=== PATIENT | female | born 1970 | race Asian ===

== ENCOUNTER 2020-11-16 11:42 | Day surgery (SDC) | payer OTHER ==
[2020-11-16] MEDS ORDERED: LACTATED RINGERS 1,000 ML IV ONE ×2 (11:58→13:23)
[2020-11-16] MEDS ORDERED: fentaNYL 250 MCG/5 ML VIAL ONE (13:00)
[2020-11-16] MEDS ORDERED: MIDAZOLAM 2 MG/2 ML VIAL ONE ×2 (13:00→13:11)
[2020-11-16 13:53] VITALS: BP 119/70
== END 2020-11-16 11:43 | disposition home or self-care (01) ==
LOC: SDS 11:42
PROVIDERS: ATTEND Surgery
PROC: 0DBP8ZX Excision of Rectum, Via Natural or Artificial Opening Endoscopic, Diagnostic (ICD-10-PCS; principal; 2020-11-16 12:45)
DX: Z12.11 Encounter for screening for malignant neoplasm of colon (principal); K64.8 Other hemorrhoids; K62.9 Disease of anus and rectum, unspecified
CPT/HCPCS: 45380; J3010; J7120

== ENCOUNTER 2020-12-07 13:41 | Outpatient (CLI) | payer OTHER ==
--- NOTE | 2020-12-08 08:54 | Mammography Report ---
BILATERAL DIGITAL SCREENING MAMMOGRAM 3D/2D: 12/07/2020 CLINICAL: Baseline exam. Routine screening. No prior exams were available for comparison. The tissue of both breasts is heterogeneously dense. T his may lower the sensitivity of mammography. No significant masses, calcifications, or other findings are seen in either breast. IMPRESSION: NEGATIVE There is no mammographic evidence of malignancy. A 1 year screening mammogram is recommended. This exam was interpreted at Station ID: [id number]. NOTE: For mammograms, a report in lay terms will be sent to the patient. Approximately 15% of breast malignancies will not be visualized mammographically. In the management of a palpable breast mass, a negative mammogram must not discourage biopsy of a clinically suspicious lesion. Electronically Signed By: Jordin Grullon M.D. ddp/penrad:12/07/2020 14:39:45 ACR BI-RADS Category 1: Negative 3341F PARENCHYMAL PATTERN: (D) - The breast(s) demonstrate(s) heterogeneously dense fibroglandular nuvia hernandez. BI-RADS CATEGORY: (1) - 1 RECOMMENDATION: (ANNUAL) - Recommend routine annual screening mammography. [id number] 1 year screening LATERALITY: (B)
== END 2020-12-07 13:42 | disposition home or self-care (01) ==
LOC: DI.N 13:41
DX: Z12.31 Encounter for screening mammogram for malignant neoplasm of breast (principal)

== ENCOUNTER 2020-12-29 14:06 | Outpatient (CLI) | payer OTHER | END 2020-12-29 14:07 | disposition home or self-care (01) | LOC: COV 14:06 | PROVIDERS: ATTEND Surgery | DX: Z01.812 Encounter for preprocedural laboratory examination (principal); K62.89 Other specified diseases of anus and rectum; Z20.822 Contact with and (suspected) exposure to COVID-19 ==

== ENCOUNTER 2021-01-01 10:32 | Day surgery (SDC) | payer OTHER ==
[~2021-01-01 10:32] MED LIST: LACTATED RINGERS 1,000 ML IV ONE; ceFAZolin 2 GM/50 ML 2 GM/50 ML BAG IV ONE
--- OUTSIDE RECORDS SUMMARY | 2021-01-01 10:35 | EXTERNAL MEDICAL SUMMARY RPT | Continuity of Care Document ---
:1970 Demographics Phone Unavailable Preferred Language Hungarian Marital Status Unknown Nondenominational Affiliation Unknown Race Unknown Ethnic Group Unknown Author Organization [facility] Address [address] [place] [address] Phone Problems date description facility [id number] [facility] Social History date description facility [id number]
[2021-01-01] MEDS ORDERED: LACTATED RINGERS 1,000 ML IV ONE ×2 (11:10→13:13)
[2021-01-01] MEDS ORDERED: HYDROmorphone 0.5 MG/0.5 ML SYRINGE IVP PRN (11:35)
[2021-01-01] MEDS ORDERED: fentaNYL 100 MCG/2 ML VIAL IVP PRN (11:35)
[2021-01-01] MEDS ORDERED: NALOXONE 0.4 MG/ML VIAL IVP PRN (11:35)
[2021-01-01] MEDS ORDERED: ATROPINE ABBOJECT 1 MG/10 ML SYRINGE IVP PRN (11:35)
[2021-01-01] MEDS ORDERED: ONDANSETRON 4 MG/2 ML VIAL IVP PRN ×2 (11:35→12:41)
[2021-01-01] MEDS ORDERED: METOCLOPRAMIDE 10 MG/2 ML VIAL IVP PRN (11:35)
[2021-01-01] MEDS ORDERED: ePHEDrine 50 MG/ML VIAL IVP PRN (11:35)
[2021-01-01] MEDS ORDERED: MORPHINE 2 MG/ML CARPUJECT IVP PRN (11:35)
--- NOTE | 2021-01-01 11:35 | ANESTHESIA ---
Pre-Anesthesia VS, & Labs - Diagnosis anal mass - Procedure EUA with excision anal mass Vital Signs: Temp Pulse Resp BP Pulse Ox 36.3 C L 65 16 133/58 H 99 01/01/21 11:01 01/01/21 11:01 01/01/21 11:01 01/01/21 11:01 01/01/21 11:01 Height: 5 ft 3 in Weight (kg): 53.3 kg Body Mass Index: 20.8 BMI Classification: Healthy weight - NPO >8 hours - Is Patient ?: No Home Medications and Allergies Ascorbic Acid [Vitamin C] 500 mg PO DAILY 11/16/20 Allergies/Adverse Reactions: Allergies Allergy/AdvReac Type Severity Reaction Status Date / Time No Known Drug Allergies Allergy Verified 11/15/20 14:30 Anes History & Medical History - Anesthetic History Anesthesia Complications: reports: No previous complications Family history of Anesthesia Complications: Denies Family history of Malignant Hyperthermia: Denies - Medical History Cardiovascular: reports: None Pulmonary: reports: None Gastrointestinal: reports: None Urinary: reports: None Musculoskeletal: reports: None Endocrine/Autoimmune: reports: None Skin: reports: None - Surgical History General: reports: Colonoscopy Orthopedic: reports: Other Exam General: Alert, Oriented x3, Cooperative Dental: WNL Mouth Openin Fingerbreadth Neck Mobility: Normal Mallampati classification: I Thyromental Distance: 4-6 cm Respiratory: Lungs clear Cardiovascular: Regular rate Abdomen: Normal bowel sounds Extremities: No clubbing Neurological: Normal gait Mental/Cognitive Status: Alert/Oriented X3 Cognitive Status: Within normal limits Plan Anesthesia Type: General Consent for Procedure(s) Verified and Reviewed: Yes Code Status: Attempt Resuscitation ASA classification: 1-Healthy patient Is this case an emergency?: No
[2021-01-01] MEDS ORDERED: BUPIVACAINE 0.5% PF 30 ML VIAL ONE (11:36)
[2021-01-01] MEDS ORDERED: LIDOCAINE 2%-EPI 1:100000 20 ML MDV ONE (11:36)
[2021-01-01] MEDS ORDERED: PROPOFOL 200 MG/20 ML VIAL IVP ONE (11:39)
[2021-01-01] MEDS ORDERED: LIDOCAINE-MPF 2% 5 ML VIAL ONE (11:40)
[2021-01-01] MEDS ORDERED: MIDAZOLAM 2 MG/2 ML VIAL ONE (11:40)
[2021-01-01] MEDS ORDERED: BUPIVACAINE 0.5% PF 30 ML VIAL INFIL ONE ×2 (11:45)
[2021-01-01] MEDS ORDERED: LIDOCAINE 2%-EPI 1:100000 20 ML MDV SUBQ ONE ×2 (11:46)
[2021-01-01] MEDS ORDERED: LACTATED RINGERS 1,000 ML IV SCH (12:00)
[2021-01-01] MEDS ORDERED: ONDANSETRON 4 MG/2 ML VIAL ONE (12:05)
[2021-01-01] MEDS ORDERED: DEXAMETHASONE 4 MG/ML VIAL ONE (12:05)
[2021-01-01] MEDS ORDERED: LIDOCAINE OINTMENT 5% 35.44 GM TUBE TOP ONE (12:23)
[2021-01-01] MEDS ORDERED: LIDOCAINE OINTMENT 5% 35.44 GM TUBE ONE (12:23)
--- NOTE | 2021-01-01 12:55 | OPERATIVE REPORT ---
Operative Report - General Procedure Date: 01/01/21 Planned Procedure: Examination under anesthesia with excision of anal mass Pre-Op Diagnosis: Anal mass Procedure Performed: Examination under anesthesia with excision of anal mass Post Op Diagnosis: Anal mass - Procedure Note Primary Surgeon: Letty Anesthesia Provider: ALINE Louie Anesthesia Technique: General LMA Pathology: Anal lesion to pathology in formalin Estimated Blood Loss (mL): 10 Indications: Anal mass seen on Colonoscopy Findings: 5mm fleshy mass at the 9 o'clock radian with patient in lithotomy position Complications: None apparent - Other Other Information/Narrative: After obtaining informed consent, the patient is brought to the operating room and placed in the supine position on the operating table. Following successful induction of general anesthesia, appropriate padding of all bony prominences, and placement appropriate monitors, the patient's legs were placed in Robin stir rups in the perianal region prepped and draped in the standard surgical fashion. A timeout was held per scope protocol. All elements of the surgical safety checklist were followed before, during, and after the procedure. We began the procedure by placing a bivalve anal retractor into the anal canal we identified the lesion at the 9:00 radian with the patient in this lithotomy position. There were no other mass lesions identified. With the retractor in place, a stitch was placed superior to the lesion to control the hemorrhoidal blood flow in that position the lesion was then removed with an elliptical incision and the existing defect closed with running locking chromic suture. Anal tone was normal. No other prominent mass lesions were identified. There are minor external anal skin tags. All sponge, needle, and instrument counts were correct at the conclusion of the case. The patient was dressed with a Gelfoam pack and dry gauze. She was taken to the postanesthesia care unit in good condition.
[2021-01-01 13:53] VITALS: BP 134/75
--- NOTE | 2021-01-01 14:05 | ANESTHESIA POST OP EVALUATION ---
Anesthesia Post Eval - Post Anesthesia Eval Vitals: Last Vital Signs Temp 36.9 C 01/01/21 13:51 Pulse 65 01/01/21 13:51 Resp 14 01/01/21 13:51 BP 134/75 H 01/01/21 13:51 Pulse Ox 100 01/01/21 13:51 CV Function Including HR & BP: Stable Pain Control: Satisfactory Nausea & Vomiting: Negative Mental Status: Baseline Respiratory Status: Airway Patent Hydration Status: Satisfactory Anesthesia Complications: None
== END 2021-01-01 10:33 | disposition home or self-care (01) ==
LOC: SDS 10:32
PROVIDERS: ATTEND Surgery
PROC: 0DBQ0ZX Excision of Anus, Open Approach, Diagnostic (ICD-10-PCS; principal; 2021-01-01 11:45)
DX: K62.89 Other specified diseases of anus and rectum (principal); K64.4 Residual hemorrhoidal skin tags
CPT/HCPCS: 46922; A9270; J0690; J7120

== ENCOUNTER 2021-11-27 10:08 | Outpatient (CLI) | payer OTHER ==
[2021-11-27 12:40] LABS: BASOPHILS % (AUTO) 0.8 %; EOSINOPHILS % (AUTO) 0.4 %; HCT - HEMATOCRIT 35.4 % (37.0-47.0); HGB - HEMOGLOBIN 11.9 g/dL (12.0-16.0); LYMPHOCYTES # (AUTO) 1.5 10^3/uL (1.5-3.5); LYMPHOCYTES % (AUTO) 30.3 %; MEAN CORPUSCULAR HEMOGLOBIN 32.7 pg (27.0-31.0); MEAN CORPUSCULAR HGB CONC 33.6 g/dL (32.0-36.0); MEAN CORPUSCULAR VOLUME 97.3 fL (81.0-99.0); MEAN PLATELET VOLUME 10.3 fL (7.9-10.8); MONOCYTES # (AUTO) 0.2 10^3/uL (0.0-1.0); MONOCYTES % (AUTO) 4.8 %; NEUTROPHILS # (AUTO) 3.2 10^3/uL (1.5-6.6); NEUTROPHILS % (AUTO) 63.5 %; PLT - PLATELET COUNT 172 10^3/uL (130-450); RED BLOOD COUNT 3.64 10^6/uL (4.20-5.40); RED CELL DISTRIBUTION WIDTH 12.2 % (12.0-15.0)
[2021-11-27 12:47] LABS: THYROID STIMULATING HORMONE 2.12 uIU/mL (0.34-5.60)
[2021-11-27 13:05] LABS: ALBUMIN 4.5 g/dL (3.2-5.5); ALBUMIN/GLOBULIN RATIO 2.3 (1.0-2.2); ALKALINE PHOSPHATASE 37 IU/L (42-121); ALT ALANINE AMINOTRANSFERASE 16 IU/L (10-60); AST ASPARTATE AMINOTRANSFERASE 16 IU/L (10-42); BILIRUBIN,TOTAL 0.7 mg/dL (0.2-1.0); BUN - BLOOD UREA NITROGEN 13 mg/dL (6-20); CALCIUM 8.8 mg/dL (8.5-10.3); CARBON DIOXIDE - CO2 25 mmol/L (21-32); CHLORIDE 105 mmol/L (101-111); CHOL/HDL RATIO 2.8 (<4.4); CHOLESTEROL 216 mg/dL; CREATININE 0.7 mg/dL (0.4-1.0); GFR - MDRD 88 (>89); GLUCOSE 97 mg/dL (70-100); HDL CHOLESTEROL 77 mg/dL; LDL CHOLESTEROL,CALCULATED 128 mg/dL; LDL/HDL RATIO 1.7 (<4.4); POTASSIUM 4.2 mmol/L (3.5-5.0); SODIUM 138 mmol/L (135-145); TOTAL PROTEIN 6.5 g/dL (6.7-8.2); TRIGLYCERIDES 53 mg/dL; VLDL CHOLESTEROL 11 mg/dL
== END 2021-11-27 10:09 | disposition home or self-care (01) ==
LOC: LAB.N 10:08
PROVIDERS: ATTEND Nurse Practitioner Family
DX: Z00.00 Encounter for general adult medical examination without abnormal findings (principal); Z13.220 Encounter for screening for lipoid disorders; E55.9 Vitamin D deficiency, unspecified; Z13.21 Encounter for screening for nutritional disorder; Z90.89 Acquired absence of other organs; Z13.29 Encounter for screening for other suspected endocrine disorder
CPT/HCPCS: 36415; 80053; 80061; 82306; 83721; 84443; 85025

== ENCOUNTER 2022-06-26 12:35 | Outpatient (CLI) | payer OTHER ==
[2022-06-26 17:43] LABS: BASOPHILS % (AUTO) 0.7 %; EOSINOPHILS % (AUTO) 0.5 %; HCT - HEMATOCRIT 38.7 % (37.0-47.0); HGB - HEMOGLOBIN 13.1 g/dL (12.0-16.0); LYMPHOCYTES # (AUTO) 1.4 10^3/uL (1.5-3.5); LYMPHOCYTES % (AUTO) 33.9 %; MEAN CORPUSCULAR HEMOGLOBIN 32.9 pg (27.0-31.0); MEAN CORPUSCULAR HGB CONC 33.9 g/dL (32.0-36.0); MEAN CORPUSCULAR VOLUME 97.2 fL (81.0-99.0); MEAN PLATELET VOLUME 10.7 fL (7.9-10.8); MONOCYTES # (AUTO) 0.2 10^3/uL (0.0-1.0); NEUTROPHILS # (AUTO) 2.4 10^3/uL (1.5-6.6); NEUTROPHILS % (AUTO) 60.4 %; PLT - PLATELET COUNT 205 10^3/uL (130-450); RED BLOOD COUNT 3.98 10^6/uL (4.20-5.40)
[2022-06-26 17:57] LABS: ALBUMIN 4.8 g/dL (3.2-5.5); ALBUMIN/GLOBULIN RATIO 1.8 (1.0-2.2); ALKALINE PHOSPHATASE 34 IU/L (42-121); ALT ALANINE AMINOTRANSFERASE 14 IU/L (10-60); AST ASPARTATE AMINOTRANSFERASE 17 IU/L (10-42); BILIRUBIN,TOTAL 1.4 mg/dL (0.2-1.0); BUN - BLOOD UREA NITROGEN 16 mg/dL (6-20); CALCIUM 9.8 mg/dL (8.5-10.3); CARBON DIOXIDE - CO2 28 mmol/L (21-32); CHLORIDE 103 mmol/L (101-111); CREATININE 0.7 mg/dL (0.4-1.0); GFR - MDRD 88 (>89); GLUCOSE 93 mg/dL (70-100); POTASSIUM 4.1 mmol/L (3.5-5.0); SODIUM 137 mmol/L (135-145); TOTAL PROTEIN 7.4 g/dL (6.7-8.2)
[2022-06-26 18:01] LABS: CRP - C-REACTIVE PROTEIN < 1.0 mg/dL (0-1.0)
[2022-06-27 18:07] LABS: ANTI-DNA (DS) AB QN 1 IU/mL (0-9); CENTROMERE B ANTIBODIES <0.2 AI (0.0-0.9); CHROMATIN ANTIBODIES <0.2 AI (0.0-0.9); JO-1 AB <0.2 AI (0.0-0.9); RIBOSOMAL P ANTIBODIES <0.2 AI (0.0-0.9); RNP ANTIBODIES <0.2 AI (0.0-0.9); SCLERODERMA-70 ANTIBODIES <0.2 AI (0.0-0.9); SJOGREN'S ANTI-SS-A <0.2 AI (0.0-0.9); SJOGREN'S ANTI-SS-B 0.2 AI (0.0-0.9); SMITH ANTIBODIES <0.2 AI (0.0-0.9); SMITH/RNP ANTIBODIES <0.2 AI (0.0-0.9)
== END 2022-06-26 12:36 | disposition home or self-care (01) ==
LOC: LAB.N 12:35
PROVIDERS: ATTEND Registered Nurse
DX: L23.9 Allergic contact dermatitis, unspecified cause (principal)
CPT/HCPCS: 36415; 80053; 83516; 85025; 86140; 86225; 86235

== ENCOUNTER 2022-11-07 09:58 | Outpatient (CLI) | payer OTHER ==
[2022-11-07 12:31] LABS: BASOPHILS % (AUTO) 0.6 %; EOSINOPHILS % (AUTO) 0.3 %; HCT - HEMATOCRIT 32.6 % (37.0-47.0); HGB - HEMOGLOBIN 11.2 g/dL (12.0-16.0); LYMPHOCYTES # (AUTO) 1.2 10^3/uL (1.5-3.5); LYMPHOCYTES % (AUTO) 35.2 %; MEAN CORPUSCULAR HEMOGLOBIN 34.6 pg (27.0-31.0); MEAN CORPUSCULAR HGB CONC 34.4 g/dL (32.0-36.0); MEAN CORPUSCULAR VOLUME 100.6 fL (81.0-99.0); MEAN PLATELET VOLUME 11.3 fL (7.9-10.8); MONOCYTES # (AUTO) 0.2 10^3/uL (0.0-1.0); MONOCYTES % (AUTO) 6.6 %; NEUTROPHILS # (AUTO) 1.9 10^3/uL (1.5-6.6); PLT - PLATELET COUNT 166 10^3/uL (130-450); RED BLOOD COUNT 3.24 10^6/uL (4.20-5.40); RED CELL DISTRIBUTION WIDTH 12.5 % (12.0-15.0); WHITE BLOOD COUNT 3.3 x10^3/uL (4.8-10.8)
[2022-11-07 12:41] LABS: ESTIMATED AVERAGE GLUCOSE 103 mg/dL (70-100); HEMOGLOBIN A1c% 5.2 % (4.27-6.07)
[2022-11-07 12:54] LABS: ALBUMIN 4.3 g/dL (3.2-5.5); ALBUMIN/GLOBULIN RATIO 1.7 (1.0-2.2); ALKALINE PHOSPHATASE 44 IU/L (42-121); ALT ALANINE AMINOTRANSFERASE 89 IU/L (10-60); AST ASPARTATE AMINOTRANSFERASE 44 IU/L (10-42); BILIRUBIN,TOTAL 1.4 mg/dL (0.2-1.0); BUN - BLOOD UREA NITROGEN 13 mg/dL (6-20); CALCIUM 9.6 mg/dL (8.5-10.3); CARBON DIOXIDE - CO2 25 mmol/L (21-32); CHLORIDE 107 mmol/L (101-111); CHOL/HDL RATIO 2.4 (<4.4); CHOLESTEROL 144 mg/dL; CREATININE 0.6 mg/dL (0.4-1.0); GFR - MDRD 105 (>89); GLUCOSE 103 mg/dL (70-100); HDL CHOLESTEROL 61 mg/dL; LDL CHOLESTEROL,CALCULATED 70 mg/dL; LDL/HDL RATIO 1.1 (<4.4); POTASSIUM 4.4 mmol/L (3.5-5.0); SODIUM 139 mmol/L (135-145); TOTAL PROTEIN 6.8 g/dL (6.7-8.2); TRIGLYCERIDES 65 mg/dL; VLDL CHOLESTEROL 13 mg/dL
[2022-11-07 13:06] LABS: THYROID STIMULATING HORMONE < 0.08 uIU/mL (0.34-5.60)
[2022-11-07 13:41] LABS: FREE T4 (FREE THYROXINE) 2.83 ng/dL (0.58-1.64)
== END 2022-11-07 09:59 | disposition home or self-care (01) ==
LOC: LAB.N 09:58
PROVIDERS: ATTEND Nurse Practitioner Family
DX: Z00.00 Encounter for general adult medical examination without abnormal findings (principal); Z13.220 Encounter for screening for lipoid disorders; Z13.1 Encounter for screening for diabetes mellitus; Z13.29 Encounter for screening for other suspected endocrine disorder
CPT/HCPCS: 36415; 80053; 80061; 83036; 83721; 84439; 84443; 85025

== ENCOUNTER 2022-11-19 10:12 | Outpatient (CLI) | payer OTHER ==
[2022-11-19 12:42] LABS: BASOPHILS % (AUTO) 0.5 %; EOSINOPHILS % (AUTO) 0.3 %; HCT - HEMATOCRIT 36.9 % (37.0-47.0); HGB - HEMOGLOBIN 12.4 g/dL (12.0-16.0); LYMPHOCYTES # (AUTO) 1.5 10^3/uL (1.5-3.5); LYMPHOCYTES % (AUTO) 39.4 %; MEAN CORPUSCULAR HEMOGLOBIN 32.4 pg (27.0-31.0); MEAN CORPUSCULAR HGB CONC 33.6 g/dL (32.0-36.0); MEAN CORPUSCULAR VOLUME 96.3 fL (81.0-99.0); MONOCYTES # (AUTO) 0.2 10^3/uL (0.0-1.0); MONOCYTES % (AUTO) 6.5 %; PLT - PLATELET COUNT 167 10^3/uL (130-450); RED BLOOD COUNT 3.83 10^6/uL (4.20-5.40); RED CELL DISTRIBUTION WIDTH 11.9 % (12.0-15.0); WHITE BLOOD COUNT 3.7 x10^3/uL (4.8-10.8)
[2022-11-19 13:15] LABS: FOLATE 16.88 ng/mL (5.90 - >24.8)
[2022-11-21 14:08] LABS: THYROGLOBULIN ANTIBODY 26.8 IU/mL (0.0-0.9); THYROID PEROXIDASE (TPO) AB <9 IU/mL (0-34)
== END 2022-11-19 10:13 | disposition home or self-care (01) ==
LOC: LAB.N 10:12
PROVIDERS: ATTEND Nurse Practitioner Family
DX: D53.9 Nutritional anemia, unspecified (principal); R00.2 Palpitations; E05.90 Thyrotoxicosis, unspecified without thyrotoxic crisis or storm
CPT/HCPCS: 36415; 82607; 82746; 85025; 86376; 86800

== ENCOUNTER 2022-12-04 16:04 | Outpatient (CLI) | payer OTHER ==
[2022-12-04 21:25] LABS: BASOPHILS % (AUTO) 0.2 %; EOSINOPHILS # (AUTO) 0.1 10^3/uL (0.0-0.7); HCT - HEMATOCRIT 33.6 % (37.0-47.0); HGB - HEMOGLOBIN 11.2 g/dL (12.0-16.0); LYMPHOCYTES # (AUTO) 2.1 10^3/uL (1.5-3.5); LYMPHOCYTES % (AUTO) 42.8 %; MEAN CORPUSCULAR HEMOGLOBIN 31.8 pg (27.0-31.0); MEAN CORPUSCULAR HGB CONC 33.3 g/dL (32.0-36.0); MEAN CORPUSCULAR VOLUME 95.5 fL (81.0-99.0); MEAN PLATELET VOLUME 11.5 fL (7.9-10.8); MONOCYTES # (AUTO) 0.4 10^3/uL (0.0-1.0); MONOCYTES % (AUTO) 7.1 %; NEUTROPHILS # (AUTO) 2.4 10^3/uL (1.5-6.6); NEUTROPHILS % (AUTO) 48.7 %; PLT - PLATELET COUNT 147 10^3/uL (130-450); RED BLOOD COUNT 3.52 10^6/uL (4.20-5.40); RED CELL DISTRIBUTION WIDTH 12.1 % (12.0-15.0); WHITE BLOOD COUNT 4.9 x10^3/uL (4.8-10.8)
[2022-12-04 21:42] LABS: ALBUMIN 4.2 g/dL (3.2-5.5); ALBUMIN/GLOBULIN RATIO 1.6 (1.0-2.2); BILIRUBIN,TOTAL 0.8 mg/dL (0.2-1.0); CALCIUM 9.4 mg/dL (8.5-10.3); CREATININE 0.5 mg/dL (0.4-1.0); POTASSIUM 3.8 mmol/L (3.5-5.0); TOTAL PROTEIN 6.8 g/dL (6.7-8.2)
[2022-12-04 21:44] LABS: THYROID STIMULATING HORMONE < 0.08 uIU/mL (0.34-5.60)
[2022-12-04 21:46] LABS: FREE T3 9.07 pg/mL (2.5-3.9)
[2022-12-04 21:47] LABS: FREE T4 (FREE THYROXINE) 2.68 ng/dL (0.58-1.64)
[2022-12-05 15:42] LABS: T4 (THYROXINE) 14.34 ug/dL (6.09-12.23)
== END 2022-12-04 16:05 | disposition home or self-care (01) ==
LOC: LAB.N 16:04
PROVIDERS: ATTEND Nurse Practitioner Family
DX: D53.9 Nutritional anemia, unspecified (principal); R74.8 Abnormal levels of other serum enzymes; R00.2 Palpitations; E05.90 Thyrotoxicosis, unspecified without thyrotoxic crisis or storm; R79.89 Other specified abnormal findings of blood chemistry; D72.819 Decreased white blood cell count, unspecified
CPT/HCPCS: 36415; 80053; 84436; 84439; 84443; 84481; 85025; 86800

== ENCOUNTER 2022-12-18 10:37 | Outpatient (CLI) | payer OTHER ==
--- NOTE | 2022-12-18 14:08 | Ultrasound Report ---
PROCEDURE: Head or Neck Soft Tissue INDICATIONS: THYROIDITIS TECHNIQUE: Real-time scanning was performed of the thyroid gland, with image documentation. COMPARISON: None FINDINGS: Right: Thyroid lobe measures 3.0 x 1.3 x 1.6 cm, and appears mildly lobular and hypervascular. Left: Thyroid lobe measures 5.1 x 1.5 x 1.6 cm, and appears mildly lobular and hypervascular. Isthmus: 0.2 cm thick. IMPRESSION: No suspicious thyroid nodule. Hypervascular appearance of the thyroid can be seen in the setting of thyroiditis. Reviewed by: Fermín Gillespie MD on 12/18/2022 2:07 PM PDT Approved by: Fermín Gillespie MD on 12/18/2022 2:07 PM PDT Station ID: [id number]
== END 2022-12-18 10:38 | disposition home or self-care (01) ==
LOC: DI 10:37
PROVIDERS: ATTEND Nurse Practitioner Family
DX: E06.9 Thyroiditis, unspecified (principal); E05.90 Thyrotoxicosis, unspecified without thyrotoxic crisis or storm

== ENCOUNTER 2022-12-30 10:19 | Outpatient (CLI) | payer OTHER ==
--- NOTE | 2022-12-31 09:05 | Mammography Report ---
BILATERAL DIGITAL SCREENING MAMMOGRAM 3D/2D: 12/30/2022 CLINICAL: Routine screening. Comparison is made to exams dated: 12/27/2021 mammogram and 12/07/2020 mammogram - [facility]. Both breasts are heterogeneously dense, which may obscure small masses (category c / 51-75% glandular tissue). There is a possible oval equal density focal asymmetry in the right breast at 7 o'clock middle depth. This is more prominent. No other significant masses, calcifications, or other findings are seen in either breast. IMPRESSION: INCOMPLETE: NEEDS ADDITIONAL IMAGING EVALUATION The possible oval equal density focal asymmetry in the right breast is indeterminate. Additional vie ws with possible ultrasound are recommended. Based on the Tyrer Cuzick model (a risk assessment model) the patients lifetime risk is 14.2% and he r 10 year risk is 3.7%. According to the ACR, ACS, and NCCN guidelines, an annual breast MRI exam golden ng with mammogram is recommended if the patients lifetime risk is 20% or greater. This exam was interpreted at Station ID: [id number]. NOTE: For mammograms, a report in lay terms will be sent to the patient. Approximately 15% of breast malignancies will not be visualized mammographically. In the management of a palpable breast mass, a negative mammogram must not discourage biopsy of a clinically suspicious lesion. Electronically Signed By: Yousuf Romero M.D. aty/:12/30/2022 14:05:27 ACR BI-RADS Category 0: Incomplete 3340F PARENCHYMAL PATTERN: (D) - The breast(s) demonstrate(s) heterogeneously dense fibroglandular parjohnny hernandez. BI-RADS CATEGORY: (0) - 0 Mammo and [place] [id number] Immediate follow-up LATERALITY: (R)
== END 2022-12-30 10:20 | disposition home or self-care (01) ==
LOC: DI.N 10:19
DX: Z12.31 Encounter for screening mammogram for malignant neoplasm of breast (principal); R92.8 Other abnormal and inconclusive findings on diagnostic imaging of breast

== ENCOUNTER 2023-02-07 10:38 | Outpatient (CLI) | payer OTHER ==
--- NOTE | 2023-02-10 12:55 | Mammography Report ---
UNILATERAL RIGHT DIGITAL DIAGNOSTIC MAMMOGRAM 3D/2D: 02/07/2023 CLINICAL: Patient returns today to evaluate a focal asymmetry in the right breast. Comparison is made to exams dated: 12/30/2022 mammogram, 12/27/2021 mammogram, and 12/07/2020 mammogram - [facility]. The right breast is heterogeneously dense, which may obscure small masses (category c / 51-75% glandu lar tissue). The possible oval focal asymmetry in the right breast at 7 o'clock middle depth is not reproduced and presumably represented superimposed breast tissue. No other significant masses or calcifications are seen in the breast. IMPRESSION: NEGATIVE There is no mammographic evidence of malignancy. Return to annual mammogram screening schedule is rec ommended. Based on the Tyrer Cuzick model (a risk assessment model) the patients lifetime risk is 14.2% and he r 10 year risk is 3.7%. According to the ACR, ACS, and NCCN guidelines, an annual breast MRI exam golden ng with mammogram is recommended if the patients lifetime risk is 20% or greater. This exam was interpreted at Station ID: [id number]. NOTE: For mammograms, a report in lay terms will be sent to the patient. Approximately 15% of breast malignancies will not be visualized mammographically. In the management of a palpable breast mass, a negative mammogram must not discourage biopsy of a clinically suspicious lesion. Electronically Signed By: Fermín parada/bull:02/07/2023 11:21:17 letter sent: No_Letter ACR BI-RADS Category 1: Negative 3341F PARENCHYMAL PATTERN: (D) - The breast(s) demonstrate(s) heterogeneously dense fibroglandular nuvia hernandez. BI-RADS CATEGORY: (1) - 1 Mammogram [id number] return to screening LATERALITY: (B)
== END 2023-02-07 10:39 | disposition home or self-care (01) ==
LOC: DI 10:38
PROVIDERS: ATTEND Nurse Practitioner Family
DX: R92.8 Other abnormal and inconclusive findings on diagnostic imaging of breast (principal)

== ENCOUNTER 2023-08-05 11:42 | Outpatient (CLI) | payer OTHER ==
--- NOTE | 2023-08-05 15:12 | XRAY Report ---
PROCEDURE: Lumbar Spine Complete with oblique view INDICATIONS: MUSCLE PAIN TECHNIQUE: 5 views of the lumbar spine were acquired including oblique views. COMPARISON: None. FINDINGS: Bones: 5 [id number] vertebrae are present. There is mild, approximately 4 mm of L4-L5 anteroli sthesis secondary to facet hypertrophy. No vertebral body compression fractures. No suspicious bony lesions. Spine degenerative disc disease and facet arthropathy are noted. Soft tissues: Overlying bowel gas pattern is normal. No suspicious soft tissue calcifications. Oblique views: No pars defects. IMPRESSION: Multilevel degenerative disc disease. Multilevel facet arthropathy. No fracture. No acute osseous lesion. If there is continued clinical concern for pathology, then MRI should be considered for further evaluation. Grade 1 L4-L5 degenerative spondylolisthesis. Reviewed by: Penny Tejada MD, PhD on 08/05/2023 3:11 PM PST Approved by: Penny Tejada MD, PhD on 08/05/2023 3:11 PM PST Station ID: [id number]
== END 2023-08-05 11:43 | disposition home or self-care (01) ==
LOC: DI 11:42
PROVIDERS: ATTEND Family Medicine
DX: M62.830 Muscle spasm of back (principal); M51.36 Other intervertebral disc degeneration, lumbar region; M47.816 Spondylosis without myelopathy or radiculopathy, lumbar region; M43.16 Spondylolisthesis, lumbar region

== ENCOUNTER 2024-01-02 12:38 | Outpatient (CLI) | payer OTHER ==
--- NOTE | 2024-01-05 11:53 | MRI Report ---
PROCEDURE: Lumbar Spine WO INDICATIONS: RADICULOPATHY TECHNIQUE: Noncontrast sagittal T1 spin echo and T2 fast echo, sagittal STIR, axial T1 and T2 fast spin echo thr ough the lumbar spine. In cases with scoliosis, additional coronal T2 fast spin echo may be performe d. COMPARISON: Correlation is made with plain films, 08/05/2023. FINDINGS: Image quality: Excellent. Alignment and Curvature: Minimal retrolisthesis is seen at L2-L3. There is minimal anterolisthesis s een at L4-L5. Bone Marrow: Marrow is of normal overall signal. Scattered foci of T1-weighted hyperintensity and T2-weighted hyperintensity are seen, without increased STIR signal. These foci are attributed to justin gn vertebral body hemangiomas. No acute vertebral body compression fractures. Spinal Cord: Conus medullaris terminates at the L1 level. Visualized cord demonstrates normal signa l and size. Paraspinous Soft Tissues: No paravertebral masses. T12-L1: Normal in appearance. L1-L2: Normal in appearance. L2-L3: The disc height is relatively well preserved. Mild disc bulge is seen. Mild facet hyper trophy is seen. There is mild to moderate left-sided and moderate right-sided neuroforaminal narrowin g. No significant central canal narrowing is seen. L3-L4: The disc height and disc signal are well preserved. Mild disc bulge is seen. Mild facet hypertrophy is seen. There is minimal left-sided and [id number] right-sided neuroforaminal narr owing. No significant central canal narrowing is seen. L4-L5: The disc height is well-preserved. There is loss of disc signal seen. Moderate disc bulge is seen at this level. A superimposed central disc protrusion is seen. Moderate facet hypertroph y is seen. Moderate to severe bilateral neural foraminal narrowing can be seen, with associated compr ession upon the exiting nerve roots. Moderate central canal narrowing is seen. L5-S1: The disc height is well-preserved. There is loss of disc signal seen. Mild disc bulge is se en. Mild facet hypertrophy is seen. At least moderate bilateral neuroforaminal narrowing can be se en. No central canal narrowing is seen. IMPRESSION: Multiple levels of lumbar spine degenerative change can be seen, which are worst at the L4-L5 level. Reviewed by: Sagar Burrows MD on 01/05/2024 10:52 AM GONZALEZ Approved by: Sagar Burrows MD on 01/05/2024 10:52 AM GONZALEZ Station ID: [id number]
== END 2024-01-02 12:39 | disposition home or self-care (01) ==
LOC: DI 12:38
PROVIDERS: ATTEND Nurse Practitioner Family
DX: R20.2 Paresthesia of skin (principal); M47.26 Other spondylosis with radiculopathy, lumbar region